=== PATIENT | female | born 1980 | race Caucasian/White ===

== ENCOUNTER → 2017-03-31 | Outpatient (CLI) | payer OTHER ==
[~2017-03-31] MED LIST: DULOXETINE HCL60 MG PO; FENTANYL1 EAC6; HYDROXYZINE HCL10 MG PO; LINZESS290 MCG PO; LORTAB 5/500 TA1 TA2 PO; LYRICA300 MG PO; SENNA-S TABLET1 EAC1 PO; SUMATRIPTAN SU100 MG PO; TRAZODONE HCL150 MG PO; VICODIN 5/500 T1 TAB PO; VYVANSE20 MG PO
--- NOTE | ~2017-03-31 | US98 ---
[facility] A Service of [facility] RADIOLOGY TEXT RESULTS PATIENT: PRESLEY SMART LOCATION: [facility] : 80 UNIT #: [id number] AGE: [address]: QUIQUE DOVER MD SEX: F ORDER DR: [id number] [facility] [address] [place], [place] [address] [id number] O MR#: [id number] Acc #: [id number] NAME: PRESLEY SMART : 1980 SEX: F STUDY DATE/TIME: 03/31/2017 14:50 UNIT: [facility] ROOM: STUDY DESCRIPTION: US Pelvic Non-OB Complete Attending Physician: Quique Dover M.D. Referring Physician: Quique Dover M.D. Ordering Physician: Quique Dover M.D. Primary Care Physician: Quique Dover M.D. MEDICAL IMAGING REPORT This report is preliminary unless electronic signature is present EXAM Pelvic ultrasound, 03/31/2017 HISTORY Dysmenorrhea. Positive HC home test on Monday. Symptoms began less than one month ago. Negative HCG at MD's office, unsure last menstrual these office. Unsure last menstrual period. FINDINGS Real-time ultrasonography of the pelvic structures performed transabdominally and transvaginally. Transvaginal imaging utilized for better visualization of the uterine and adnexal structures. The uterus measures approximately 8.81 cm x 4.08 cm x 4.86 cm. Myometrium normal in appearance. Endometrial echo complex measures approximately 2 mm in thickness. No intrauterine of greater than 4 weeks gestational age is seen. No intrauterine fluid suggested. No free fluid in the pelvis. The right ovary measures 2.78 cm x 1.64 cm x 3.99 cm. It contains at least one hypo- to anechoic follicular cyst. It contains an echogenic focus measuring 0.734 cm x 0.832 cm x 0.566 cm. Exact etiology unclear. Possible small dermoid versus complicated cyst with internal products of hemorrhage. Arterial and venous flow present in the right ovary. Left ovary measures 1.61 cm x 1.54 cm x 3.04 cm. Small follicular cysts are seen. Arterial and venous flow present. IMPRESSION 1. The uterus is normal in appearance. Endometrial echo complex normal in appearance. No intrauterine of greater than 4 weeks gestational age is seen. 2. There is no free fluid the pelvis. 3. Arterial and venous flow in bilateral ovaries. In the right STS. [facility] A Service of [facility] RADIOLOGY TEXT RESULTS PATIENT: PRESLEY SMART LOCATION: [facility] : 80 UNIT #: [id number] AGE: [address]: QUIQUE DOVER MD SEX: F ORDER DR: ovary there is an echogenic focus measuring up to about 7 mm in maximum diameter. Nonspecific appearance. This may represent a complex physiologic cyst with internal products of hemorrhage. A small dermoid might be considered. In the absence of prior studies for comparison, consider 6-week ultrasound followup to assess for short-term stability or resolution of this finding. Dictated by... Lenard Winston M.D. THIS IS AN ELECTRONICALLY VERIFIED REPORT Lenard Winston M.D. at 04/05/2017 6:17 PM NEENA/ebony TD: 04/04/2017 21:44 JOB #: [id number] MEDICAL IMAGING REPORT Page 1 of 1 COPY
== END | disposition home or self-care (01) ==
LOC: CWCC 14:34
DX: N94.6 Dysmenorrhea, unspecified (principal)
CPT/HCPCS: 76830; 76856